=== PATIENT | female | born 1990 | race African-American/Black ===

== ENCOUNTER 2020-12-20 17:26 | Emergency (ER) | payer MEDICAID, SELFPAY ==
[2020-12-20 17:28] VITALS: BP 109/75; PULSE 70; RESP 18; TEMP 36.8; O2SAT 98; BMI 34.9
--- NOTE | 2020-12-20 17:50 | RAD_ITS ---
STUDY: X-RAY - LEFT SHOULDER REASON FOR EXAM: Female, 30 years old. PAIN TECHNIQUE: 4 view(s) of the shoulder. COMPARISON: None. FINDINGS: Normal glenohumeral articulation. Normal acromioclavicular joint. Normal acromion. Normal humeral head and visualized proximal humerus. The soft tissue structures are unremarkable. Normal visualized pulmonary apex. RAD/Shoulder min 2 Views IMPRESSION: Normal x-ray examination of the shoulder. Electronically Signed: Deepti Huizar MD at 18:29 EDT Tel , Service support ,
[2020-12-20 17:54] LABS: Internal QC Validated? YES +Cl - CLEAR BKGD; Pregnancy, Urine Negative Negative
--- NOTE | 2020-12-20 19:01 | EX.ED.UPPERE ---
HPI History of Present Illness Chief Complaint: Upper Extremity Injury Informant: patient Onset/Context/Timing Onset: Month(s) Context: Gradual Onset Timing: Intermittent and Waxes and wanes Quality of Pain: - (Sharp pain) Location: Left shoulder region Current Severity: Mild Maximum Severity: Severe Worsened by: Certain movements Relieved by: Rest with right upper extremity in adduction and internally rotated Associated Symptoms Associated Symptoms: Negative for Parasthesia, Weakness and Loss of Funtion Narrative Narrative: Patient is a 30-year-old [id number] woman who presents with shoulder pain that is been intermittent for the past month. She had increased pain. She states the pain now awakens her when she turns. Tetanus Immunization: 5-10 years Prior similar symptoms: No Recent Illness/Hospitalization: No PFSH PFSH no medical history Home Medications naproxen 500 mg PO BID #14 tab 12/20/20 [Rx Last Taken Unknown] Allergy/AdvReac Type Severity Reaction Status Date / Time Penicillins Allergy Rash Verified 12/20/20 17:27 Social History (Updated 12/20/20 @ 19:[address] Dimas Arreola MD) household members: children Smoking Status: Former smoker alcohol intake: never substance use type: does not use ROS ROS ED Constitutional Constitutional ED: Denies chills, frequent falls, subjective or sweats Cardiovascular Cardiovascular: Denies chest pain or palpitations Respiratory/Chest Respiratory/Chest: Denies cough, dyspnea or dyspnea on exertion Gastrointestinal Gastrointestinal: Denies nausea or vomiting Musculoskeletal Musculoskeletal: Denies back pain, myalgias or neck pain Neurologic Neurologic: Denies paresthesias or weakness Hematologic/Lymphatic Hematologic/Lymphatic: Denies easy bleeding or easy bruising EXAM Physical Exam Const Vital Signs: 12/20/20 17:28 Temperature 98.3 F Temperature Source Temporal Pulse Rate 70 Respiratory Rate 18 Blood Pressure 109/75 Blood Pressure Mean 86 Pulse Ox 98 Oxygen Delivery Method Room Air Positive well nourished and well developed General Appearance ED: well developed and NAD HEENT normocephalic and atraumatic Eyes PERRL and EOMs intact bilaterally Neck full ROM and supple General: Negative for tenderness Resp normal respiratory effort and clear to auscultation bilaterally Cardio regular rate, regular rhythm, S1 normal heart sound, S2 normal heart sound and no murmurs Extremity Left Upper Extremity: shoulder joint Shoulder Joint Exam - Left: inspection (Is normal.), palpation (There is pain no patient over the AC joint and supraspinatus muscle.), ROM (Patient has pain with abduction past 90 degrees.) and neurovascular exam (Axillary, median, radial and ulnar function intact. Radial pulses palpable.) Neuro oriented x3, CN's II-XII intact bilaterally and no sensory deficits noted Sensorium / Orientation: alert Motor Exam: strength 5/5 throughout Psych mental status grossly normal Skin Lesions: no lesions Rashes: no rashes Trauma: no lacerations or abrasions MDM MDM MDM Narrative Medical decision making narrative: Suspect patient has impingement syndrome. Will obtain x-ray to determine if there is evidence of calcification of the supraspinatus tendon. Also if there was evidence of injury to the AC joint since she has significant tenderness over the AC joint. Three-view x-ray of the shoulder reveals widening of the AC joint. This raises suspicion for prior injury. Clinically she has impingement syndrome. Since there is no contraindication NSAID she was prescribed NSAIDs and discharged home. She does not have a physician in the area since she relocated. Will have her follow-up with Dr. Vitaliy Lakhani who is on-call for orthopedics. Lab Data Labs: Laboratory Results - last 24 hr 12/20/20 17:41 Urine Test Negative Radiography Diagnostic Testing: Radiology Impression Shoulder X-Ray 12/20/20 17:50 IMPRESSION: Normal x-ray examination of the shoulder. Electronically Signed: Deepti Huizar MD at 18:29 EDT Tel , Service support , Discharge Plan Triage Chief Complaint: Upper Extremity Injury ED Provider: Dimas Arreola Dx/Rx/DC Orders Clinical Impression: Impingement syndrome of left shoulder Instructions: ED Shoulder Impingement Syndrome Prescriptions: New naproxen 500 MG tablet 500 mg PO BID Qty: 14 RF: 0 Primary Care Provider: Care Physician,No Primary Referrals: Vitaliy Lakhani MD [STAFF PHYSICIAN] - 1 Week if not improving Care Physician,No Primary [Primary Care Provider] - Disposition Disposition: Home, Self Care
[2020-12-20 19:19] VITALS: BP 118/75; PULSE 62; RESP 15; O2SAT 98
== END 2020-12-20 19:19 | disposition home or self-care (01) ==
PROVIDERS: Emergency Provider Emergency Medicine
DX: M75.42 Impingement syndrome of left shoulder (principal); Z87.891 Personal history of nicotine dependence; Z79.1 Long term (current) use of non-steroidal anti-inflammatories (NSAID)
CPT/HCPCS: 73030; 81025; 99284

== ENCOUNTER 2021-01-18 13:32 | Emergency (ER) | payer MEDICAID, SELFPAY ==
[2021-01-18 13:35] VITALS: BP 117/76; PULSE 88; RESP 16; TEMP 36.7; O2SAT 96; BMI 22.4
--- NOTE | 2021-01-18 14:15 | EDS_ITS ---
HPI History of Present Illness Chief Complaint: Abd Pain Narrative Narrative: 30-year-old female with history of ovarian cyst presenting with left lower quadrant abdominal pain/pelvic pain. Patient states that it feels like her previous cyst. She has some associated mild nausea. She is not had fever, chills, vomiting. She denies vaginal complaints or urinary complaints. She has no constipation or diarrhea. Patient is unsure if she can be as her menstrual cycles are regular. Her last menstrual period was December 21. She does not have any breast tenderness or other signs of that she had previous pregnancies. [facility] Medical History Former smoker Ovarian cyst Home Medications ondansetron 4 mg PO Q8H PRN PRN #10 tab 01/18/21 [Rx Last Taken Unknown] Allergy/AdvReac Type Severity Reaction Status Date / Time Penicillins Allergy Rash Verified 01/18/21 13:34 Social History household members: children Smoking Status: Former smoker alcohol intake: never substance use type: does not use ROS ROS ED Constitutional Constitutional ED: Denies chills or fever(s) Eyes Eyes: Denies blurry vision or diplopia ENT ENT ED: Denies rhinorrhea or sore throat Cardiovascular Cardiovascular: Denies chest pain or palpitations Respiratory/Chest Respiratory/Chest: Denies cough, dyspnea or sputum Gastrointestinal Gastrointestinal: Reports abdominal pain and nausea; Denies constipation, diarrhea or vomiting Genitourinary Genitourinary ED: Denies dysuria or hematuria Musculoskeletal Musculoskeletal: Denies arthralgias or myalgias Integumentary Denies Abrasions or rash Neurologic Neurologic: Denies headache(s) or paresthesias EXAM Physical Exam Const Vital Signs: 01/18/21 13:35 Temperature 98.1 F Temperature Source Temporal Pulse Rate 88 Respiratory Rate 16 Blood Pressure 117/76 Blood Pressure Mean 89 Pulse Ox 96 Oxygen Delivery Method Room Air Positive well nourished General Appearance ED: NAD HEENT Reports moist mucous membranes trauma Eyes PERRL and EOMs intact bilaterally Resp normal respiratory effort and clear to auscultation bilaterally Cardio regular rate and regular rhythm GI GI Narrative: Mild tenderness left pelvic region. Abdomen nonperitoneal. No CVA tenderness. Back/Spine no CVA tenderness Extremity normal to inspection General Extremety ED: Yes tenderness Neuro oriented x3 and CN's II-XII intact bilaterally Sensorium / Orientation: alert Psych mental status grossly normal Skin no rashes or lesions noted MDM MDM MDM Narrative Medical decision making narrative: Lab Data Attestation: I reviewed the patient's lab results. Lab results narrative: Patient's urinalysis negative for infection. hCG is negative. Basic lab work drawn and is normal. Transvaginal ultrasound shows a dominant left ovarian follicle without a maritza cyst. Patient counseled on findings. She will use Tylenol and ibuprofen at home. I will write her prescription for Zofran for nausea. Impression: 1. Left ovarian follicle Labs: Laboratory Results - last 24 hr 01/18/21 01/18/21 01/18/21 14:33 14:33 14:33 WBC 3.9 L RBC 4.12 L Hgb 12.3 Hct 38.4 MCV 93.2 MCH 29.9 MCHC 32.0 RDW Std Deviation 41.6 RDW Coeff of Ioana 12.0 Plt Count 272 MPV 9.3 Immature Gran % (Auto) 0.300 Neut % (Auto) 61.4 Lymph % (Auto) 29.0 [place] % (Auto) 8.3 Eos % (Auto) 0.5 Baso % (Auto) 0.5 Absolute Neuts (auto) 2.4 Absolute Lymphs (auto) 1.12 Nucleated RBC % 0 Sodium 139 Potassium 3.6 Chloride 106 Carbon Dioxide 27.0 Anion Gap 6 BUN 11 Creatinine 0.86 Estim Creat Clear Calc 89.54 Est GFR (MDRD) Af Amer 99 Est GFR (MDRD) Non-Af 82 BUN/Creatinine Ratio 12.8 Glucose 98 Calcium 9.1 Urine Color Urine Clarity Urine pH Ur Specific [place] Urine Protein Urine Glucose (UA) Urine Ketones Urine Occult Blood Urine Nitrite Urine Bilirubin Urine Urobilinogen Ur Leukocyte Esterase Urine RBC Urine WBC Ur Squamous Epith Cells Urine Bacteria Urine Mucus Urine Test Negative 01/18/21 14:33 WBC RBC Hgb Hct MCV MCH MCHC RDW Std Deviation RDW Coeff of Ioana Plt Count MPV Immature Gran % (Auto) Neut % (Auto) Lymph % (Auto) [place] % (Auto) Eos % (Auto) Baso % (Auto) Absolute Neuts (auto) Absolute Lymphs (auto) Nucleated RBC % Sodium Potassium Chloride Carbon Dioxide Anion Gap BUN Creatinine Estim Creat Clear Calc Est GFR (MDRD) Af Amer Est GFR (MDRD) Non-Af BUN/Creatinine Ratio Glucose Calcium Urine Color Yellow Urine Clarity Cloudy Urine pH 6.5 Ur Specific [place] 1.015 Urine Protein 30 H Urine Glucose (UA) Normal Urine Ketones 5 H Urine Occult Blood Negative Urine Nitrite Negative Urine Bilirubin Negative Urine Urobilinogen 4 H Ur Leukocyte Esterase 100 H Urine RBC 0 SEEN Urine WBC 0-5 SEEN Ur Squamous Epith Cells 5-10 SEEN Urine Bacteria 1+ Urine Mucus 1+ Urine Test Radiography Diagnostic Testing: Radiology Impression Transvaginal US 01/18/21 15:03 IMPRESSION: Normal transvaginal pelvic ultrasound with a dominant follicle in the left ovary. Electronically Signed: Feliciano Alaniz MD at 16:25 EDT Tel , Service support , Discharge Plan Triage Chief Complaint: Abd Pain ED Provider: Cedrick Harvey Dx/Rx/DC Orders Instructions: Ovarian Cysts Prescriptions: New ondansetron 4 mg tablet,disintegrating 4 mg PO Q8H PRN PRN (Reason: Nausea) Qty: 10 RF: 0 Primary Care Provider: Care Physician,No Primary Referrals: Vipul Pyle MD [STAFF PHYSICIAN] - As Needed Care Physician,No Primary [Primary Care Provider] - Disposition Disposition: Home, Self Care
[2021-01-18] MEDS: Ondansetron 4 MG/2 ML Vial IV (14:37)
[2021-01-18 14:39] LABS: Red Blood Cells-Urine 0 SEEN /hpf (0-5)
[2021-01-18 14:42] LABS: Absolute Lymphocyte Count 1.12 X10^3/uL (0.83-4.51); Absolute Neutrophil Count 2.4 X10^3/uL (2.0-7.7); Basophil# 0.02 X10^3/uL; Basophil% 0.5 % (0-1); Eosinophil# 0.02 X10^3/uL; Eosinophils% 0.5 % (0-5); Hematocrit 38.4 % (37-47); Hemoglobin 12.3 g/dL (12.0-15.0); Lymphocyte # 1.12 X10^3/ul (0.83-4.51); Mean Corpuscular Hgb 29.9 pg (27.0-32.0); Mean Corpuscular Volume 93.2 fL (81-99); Mean Platelet Vol. 9.3 fl (6.2-12.0); Monocyte# 0.32 X10^3/uL; Monocyte% 8.3 % (0-10); NRBC Flagged by Analyzer 0 % (0-5); Neutrophil # 2.37 X10^3/uL (2.7-7.7); Neutrophil % 61.4 % (47-70); Platelet Count 272 K/mm3 (150-450); RBC Distribution Width SD 41.6 fl (35.1-43.9); Red Blood Count 4.12 M/mm3 (4.2-5.4); White Blood Count 3.9 K/mm3 (4.4-11.0)
[2021-01-18 14:45] LABS: Color, Urine Yellow (Yellow); Glucose, Dipstick Normal (Normal); Internal QC Validated? YES +Cl - CLEAR BKGD; Ketone-Dipstick 5 mg/dl (Negative); Leukocyte Esterase-Dipstick 100 /ul (Negative); Nitrite-Dipstick Negative (Negative); Occult Blood-Urine Negative /ul (Negative); Protein-Dipstick 30 mg/dl (Negative); Specific Gravity, Urine 1.015 (1.002-1.030); Urine Bilirubin Dipstick Negative (Negative); Urine Clarity Cloudy (Clear); Urine Urobilinogen 4 mg/dl (Normal); Urine pH 6.5 (5.0 - 8.0)
[2021-01-18 14:48] LABS: Pregnancy, Urine Negative Negative
[2021-01-18 14:54] LABS: Anion Gap 6 (5-15); BUN 11 mg/dL (7-18); BUN/Creat Ratio 12.8 RATIO (10-20); Bacteria 1+ /hpf (None Seen); Calcium,Total 9.1 mg/dL (8.5-10.1); Chloride 106 mmol/L (98-107); Creatinine, Serum 0.86 mg/dL (0.55-1.02); EST Glomerular Filtration Rate 82 mL/min (>60); Est Glom Filt Rate - Afr Amer 99 mL/min (>60); Estimated Creatinine Clearance 89.54 ml/min; Glucose 98 mg/dL (74-106); Potassium 3.6 mmol/L (3.5-5.1); Sodium Level 139 mmol/L (136-145); Squamous Epithelial Cells - UA 5-10 SEEN /hpf (5-10); White Blood Cells 0-5 SEEN /hpf (0-5)
[2021-01-18 14:55] LABS: Mucous, Urine 1+ /hpf (<or=2+)
--- NOTE | 2021-01-18 15:03 | US_ITS ---
STUDY: ULTRASOUND TRANSVAGINAL CLINICAL: Female, 30 years old. pelvic pain-LLQ TECHNIQUE: Transvaginal COMPARISON: None. FINDINGS: Normal uterine size measuring 8.8 x 4.7 x 3.6 cm in maximal craniocaudal dimension. There are no myometrial masses. Normal endometrial thickness measuring 2 mm. There are no endometrial masses, and there is no fluid in the endometrial cavity. Normal uterine cervix. Normal right ovary, measuring 2.4 x 1.7 x 1.2 cm. There are multiple follicles without a dominant cyst. Normal left ovary, measuring 3.7 x 3.2 x 2.7 cm. There are multiple follicles without a dominant cyst. There is no free fluid in the pelvis. Polycystic ovary disease: No. US/Transvaginal Non- IMPRESSION: Normal transvaginal pelvic ultrasound with a dominant follicle in the left ovary. Electronically Signed: Feliciano Alaniz MD at 16:25 EDT Tel , Service support ,
[2021-01-18] MEDS: Ketorolac 15 MG/ML Vial IV (15:38)
[2021-01-18 16:58] VITALS: PULSE 79; RESP 15; O2SAT 99
== END 2021-01-18 16:59 | disposition home or self-care (01) ==
PROVIDERS: Emergency Provider Student in an Organized Health Care Education/Training Program
DX: R10.32 Left lower quadrant pain (principal); R10.2 Pelvic and perineal pain; R11.0 Nausea; Z87.891 Personal history of nicotine dependence
CPT/HCPCS: 76830; 80048; 81001; 81025; 85025; 93976; 96374; 96375; 99283; A4216; J2405

== ENCOUNTER 2021-05-24 13:35 | Outpatient (CLI) | payer MEDICAID, SELFPAY ==
[2021-05-24 14:04] LABS: Hematocrit 37.4 % (37-47); Hemoglobin 12.3 g/dL (12.0-15.0); Mean Corp Hgb Conc 32.9 g/dL (32-36); Mean Corpuscular Hgb 30.1 pg (27.0-32.0); Mean Corpuscular Volume 91.4 fL (81-99); Mean Platelet Vol. 9.3 fl (6.2-12.0); Platelet Count 299 K/mm3 (150-450); RBC Distribution Width CV 12.1 % (11.6-14.6); RBC Distribution Width SD 40.6 fl (35.1-43.9); Red Blood Count 4.09 M/mm3 (4.2-5.4); White Blood Count 3.3 K/mm3 (4.4-11.0)
[2021-05-24 14:32] LABS: hCG Titer Quant., Serum < 1 mIU/mL (1-3)
[2021-05-24 14:54] LABS: Estradiol 129.9 pg/mL; Follicle Stimulating Hormone 6.9 mIU/mL; Luteinizing Hormone 13.7 mIU/mL; Prolactin 37.8 ng/mL; T4 Free Direct 0.82 ng/dL (0.76-1.46); Thyroid Stim Hormone (TSH) 0.44 uIU/mL (0.358-3.74)
== END 2021-05-24 23:59 | disposition short-term general hospital (02) ==
LOC: WOBLAB 13:36
PROVIDERS: Visit Provider Obstetrics & Gynecology
DX: N93.9 Abnormal uterine and vaginal bleeding, unspecified (principal)
CPT/HCPCS: 36415; 82670; 83001; 83002; 84146; 84439; 84443; 84702; 85027; 86900; 86901

== ENCOUNTER 2021-07-13 21:02 | Emergency (ER) | payer MEDICAID, SELFPAY ==
[2021-07-13 21:03] VITALS: BP 102/56; PULSE 90; RESP 16; TEMP 36.3; O2SAT 98; BMI 20.9
[2021-07-14 00:41] LABS: Red Blood Cells-Urine 0 SEEN /hpf (0-5)
[2021-07-14 00:43] LABS: Absolute Lymphocyte Count 2.55 X10^3/uL (0.83-4.51); Absolute Neutrophil Count 1.7 X10^3/uL (2.0-7.7); Basophil# 0.03 X10^3/uL; Basophil% 0.6 % (0-1); Eosinophil# 0.07 X10^3/uL; Eosinophils% 1.5 % (0-5); Hematocrit 35.3 % (37-47); Hemoglobin 11.8 g/dL (12.0-15.0); Lymphocyte # 2.55 X10^3/ul (0.83-4.51); Lymphocyte % 54.8 % (19-41); Mean Corp Hgb Conc 33.4 g/dL (32-36); Mean Corpuscular Hgb 30.4 pg (27.0-32.0); Mean Platelet Vol. 9.3 fl (6.2-12.0); Monocyte# 0.33 X10^3/uL; Monocyte% 7.1 % (0-10); NRBC Flagged by Analyzer 0 % (0-5); Neutrophil # 1.66 X10^3/uL (2.7-7.7); Neutrophil % 35.8 % (47-70); Platelet Count 251 K/mm3 (150-450); RBC Distribution Width CV 12.3 % (11.6-14.6); RBC Distribution Width SD 40.7 fl (35.1-43.9); Red Blood Count 3.88 M/mm3 (4.2-5.4); White Blood Count 4.7 K/mm3 (4.4-11.0)
[2021-07-14 00:48] LABS: Color, Urine Yellow (Yellow); Glucose, Dipstick Normal (Normal); Ketone-Dipstick Negative (Negative); Leukocyte Esterase-Dipstick 25 /ul (Negative); Nitrite-Dipstick Negative (Negative); Occult Blood-Urine Negative /ul (Negative); Protein-Dipstick Negative (Negative); Urine Bilirubin Dipstick Negative (Negative); Urine Clarity Clear (Clear); Urine Urobilinogen 1 mg/dl (Normal)
[2021-07-14 00:51] LABS: Internal QC Validated? YES +Cl - CLEAR BKGD
[2021-07-14 00:52] LABS: Pregnancy, Urine Positive Negative
[2021-07-14 00:57] LABS: Bacteria 2+ /hpf (None Seen); Mucous, Urine 3+ /hpf (<or=2+); Squamous Epithelial Cells - UA 5-10 SEEN /hpf (5-10); White Blood Cells 0-5 SEEN /hpf (0-5)
[2021-07-14 01:15] LABS: AST(SGOT) 13 U/L (15-37); Alanine Aminotransfer ALT/SGPT 20 U/L (13-56); Albumin, Serum 3.5 g/dL (3.2-5.0); Alkaline Phosphatase 48 U/L (45-117); Anion Gap 6 (5-15); BUN 10 mg/dL (7-18); BUN/Creat Ratio 13.1 RATIO (10-20); Bilirubin, Direct 0.19 mg/dL (0.00-0.30); Calcium,Total 9.1 mg/dL (8.5-10.1); Chloride 106 mmol/L (98-107); Creatinine, Serum 0.76 mg/dL (0.55-1.02); EST Glomerular Filtration Rate 94 mL/min (>60); Est Glom Filt Rate - Afr Amer 113 mL/min (>60); Estimated Creatinine Clearance 99.73 ml/min; Globulin 3.7 g/dL (2.2-4.2); Glucose 88 mg/dL (74-106); Lipase 194 U/L (73-393); Potassium 3.5 mmol/L (3.5-5.1); Protein, Total 7.2 g/dL (6.4-8.2); Sodium Level 140 mmol/L (136-145)
--- NOTE | 2021-07-14 01:28 | US_ITS ---
STUDY: FIRST TRIMESTER OBSTETRICAL ULTRASOUND REASON FOR EXAM: Female, 31 years old pelvic pain LMP: 06/16/2021 TECHNIQUE: Transvaginal TECHNICAL QUALITY: Adequate. PRIOR ULTRASOUND: None. FINDINGS: There is no demonstrated intrauterine gestational sac. The uterus measures 9.3 x 5.4 x 4.9 cm. There is no demonstrated uterine fibroid. The cervix is closed. The right ovary measures 3 x 4.9 x 3 cm. There is no right ovarian cyst. There is no visualized right adnexal mass or complex lesion. The left ovary measures 3.4 x 3003 cm. There is no left ovarian cyst. There is no visualized left adnexal mass or complex lesion. There is minimal fluid in the cul de sac. US/Transvaginal w/Preg US IMPRESSION: There is minimal fluid in the cul de sac. There is no demonstrated intrauterine gestational sac. Ectopic cannot be excluded. Follow-up is recommended. Electronically Signed: Slim Gama MD at 3:05 EDT ,
[2021-07-14] MEDS: Acetaminophen 500 MG Tablet 1000 MG PO (01:37)
[2021-07-14 01:39] VITALS: BP 102/48; PULSE 77; RESP 16; O2SAT 100
[2021-07-14 01:59] LABS: hCG Titer Quant., Serum 19 mIU/mL (1-3)
--- NOTE | 2021-07-14 04:13 | EDS_ITS ---
HPI History of Present Illness Chief Complaint: Abd Pain Narrative Narrative: Patient is a 31-year-old female who states that she has noticed some right-sided lower abdominal pain throughout the day today. She states is gradually increased in severity and now radiates towards her back. She denies any trauma or excessive activity. She reports nausea but denies any vomiting or diarrhea. She denies any vaginal bleeding or discharge. She states she has had an ovarian cyst in the past and has concern for this once again and therefore comes in for evaluation. [facility] Medical History Former smoker Ovarian cyst Home Medications ondansetron 4 mg PO Q8H PRN PRN #10 tab 01/18/21 [Rx Last Taken Unknown] Allergy/AdvReac Type Severity Reaction Status Date / Time Penicillins Allergy Rash Verified 07/13/21 21:05 Social History household members: children Smoking Status: Former smoker alcohol intake: never substance use type: does not use ROS ROS ED Constitutional Constitutional ED: Denies chills or fever(s) ENT ENT ED: Denies sore throat Cardiovascular Cardiovascular: Denies chest pain Respiratory/Chest Respiratory/Chest: Denies cough or dyspnea Gastrointestinal Gastrointestinal: Reports abdominal pain and nausea; Denies diarrhea or vomiting Genitourinary Genitourinary ED: Denies dysuria or hematuria Musculoskeletal Musculoskeletal: Reports back pain; Denies myalgias Integumentary Denies rash Neurologic Neurologic: Denies headache(s) Hematologic/Lymphatic Hematologic/Lymphatic: Denies easy bleeding or easy bruising EXAM Physical Exam Const Vital Signs: 07/13/21 21:03 07/14/21 01:39 07/14/21 04:15 Temperature 97.4 F L Temperature Source Temporal Pulse Rate 90 77 80 Respiratory Rate 16 16 18 Blood Pressure 102/56 L 102/48 L Blood Pressure Mean 71 66 Pulse Ox 98 100 97 Oxygen Delivery Method Room Air Room Air Positive well nourished and well developed General Appearance ED: well developed HEENT Reports moist mucous membranes Eyes PERRL and EOMs intact bilaterally Neck supple Resp normal respiratory effort and clear to auscultation bilaterally Cardio regular rate and regular rhythm Rate: other Other Details: Radial pulses are +2-4 bilaterally are equal and symmetric GI non-distended and no masses GI Narrative: Abdomen is soft and nondistended with normoactive bowel sounds. There is faint pain with palpation in the right lower quadrant without voluntary guarding or rigidity. No pulsatile mass Auscultation: normoactive bowel sounds Palpation: soft Back/Spine no CVA tenderness Extremity normal to inspection Neuro oriented x3 and CN's II-XII intact bilaterally Sensorium / Orientation: alert Motor Exam: strength 5/5 throughout Psych mental status grossly normal Skin no rashes or lesions noted MDM MDM MDM Narrative Medical decision making narrative: Patient presented to the ER with stable vitals and a soft nonsurgical abdomen. She had pain in the right lower quadrant but no physical exam findings to concern for appendicitis. She had concern for an ovarian cyst but he does not present as a torsion and therefore do not feel there is a need to call an ultrasound emergently. A basic work-up was obtained which shows that she does test positive for urine . With her abdominal pain I therefore elected to call an ultrasound because of the chance of an ectopic. The patient's hCG value was only 19 and ultrasound did not show anything within the uterus which is consistent with her early gestational age. I reevaluated the patient and she reports moderate improvement of her abdominal pain. I discussed the case with [facility] on-call and they agree that as vitals are stable abdomen is soft and nonsurgical and that her value is so low this correlates with nothing seen on ultrasound and patient can follow-up on an outpatient basis with serial hCG value. This plan was discussed with the patient she is agreeable to it and therefore be discharged at this time Lab Data Attestation: I reviewed the patient's lab results. Labs: Laboratory Results - last 24 hr 07/14/21 07/14/21 07/14/21 00:20 00:30 00:30 WBC 4.7 RBC 3.88 L Hgb 11.8 L Hct 35.3 L MCV 91.0 MCH 30.4 MCHC 33.4 RDW Std Deviation 40.7 RDW Coeff of Ioana 12.3 Plt Count 251 MPV 9.3 Immature Gran % (Auto) 0.200 Neut % (Auto) 35.8 L Lymph % (Auto) 54.[address] [place] % (Auto) 7.1 Eos % (Auto) 1.5 Baso % (Auto) 0.6 Absolute Neuts (auto) 1.7 L Absolute Lymphs (auto) 2.55 Nucleated RBC % 0 Sodium 140 Potassium 3.5 Chloride 106 Carbon Dioxide 28.0 Anion Gap 6 BUN 10 Creatinine 0.76 Estim Creat Clear Calc 99.73 Est GFR (MDRD) Af Amer 113 Est GFR (MDRD) Non-Af 94 BUN/Creatinine Ratio 13.1 Glucose 88 Calcium 9.1 Total Bilirubin 0.70 Direct Bilirubin 0.19 AST 13 L ALT 20 Alkaline Phosphatase 48 Total Protein 7.2 Albumin 3.5 Globulin 3.7 Lipase 194 HCG, Quant Urine Color Yellow Urine Clarity Clear Urine pH 6.0 Ur Specific [place] 1.020 Urine Protein Negative Urine Glucose (UA) Normal Urine Ketones Negative Urine Occult Blood Negative Urine Nitrite Negative Urine Bilirubin Negative Urine Urobilinogen 1 H Ur Leukocyte Esterase 25 H Urine RBC 0 SEEN Urine WBC 0-5 SEEN Ur Squamous Epith Cells 5-10 SEEN Urine Bacteria 2+ Urine Mucus 3+ Urine Test Positive H Blood Type 07/14/21 07/14/21 01:20 01:20 WBC RBC Hgb Hct MCV MCH MCHC RDW Std Deviation RDW Coeff of Ioana Plt Count MPV Immature Gran % (Auto) Neut % (Auto) Lymph % (Auto) [place] % (Auto) Eos % (Auto) Baso % (Auto) Absolute Neuts (auto) Absolute Lymphs (auto) Nucleated RBC % Sodium Potassium Chloride Carbon Dioxide Anion Gap BUN Creatinine Estim Creat Clear Calc Est GFR (MDRD) Af Amer Est GFR (MDRD) Non-Af BUN/Creatinine Ratio Glucose Calcium Total Bilirubin Direct Bilirubin AST ALT Alkaline Phosphatase Total Protein Albumin Globulin Lipase HCG, Quant 19 H Urine Color Urine Clarity Urine pH Ur Specific [place] Urine Protein Urine Glucose (UA) Urine Ketones Urine Occult Blood Urine Nitrite Urine Bilirubin Urine Urobilinogen Ur Leukocyte Esterase Urine RBC Urine WBC Ur Squamous Epith Cells Urine Bacteria Urine Mucus Urine Test Blood Type O POSITIVE Radiography Diagnostic Testing: Clinical Impression(s) from Imaging Studies Obstetrics Ultrasound 07/14/21 01:28 IMPRESSION: There is minimal fluid in the cul de sac. There is no demonstrated intrauterine gestational sac. Ectopic cannot be excluded. Follow-up is recommended. Electronically Signed: Slim Gama MD at 3:05 EDT , Discharge Plan Triage Chief Complaint: Abd Pain ED Provider: Thuan Mcdonald Dx/Rx/DC Orders Clinical Impression: Abdominal pain during Instructions: ED Abdominal Pain, Early Prescriptions: No Action ondansetron 4 mg tablet,disintegrating 4 mg PO Q8H PRN PRN (Reason: Nausea) Qty: 10 RF: 0 Primary Care Provider: Care Physician,No Primary Referrals: Sergio Lakhani MD [STAFF PHYSICIAN] - 5-7 Days Care Physician,No Primary [Primary Care Provider] - Activity Restrictions/Additional Instructions: Please follow-up with your [facility] to have repeat values obtained and return to the ER should you have any further concerns Disposition Disposition: Home, Self Care Discharge Date/Time: 07/14/21 04:29
[2021-07-14 04:15] VITALS: PULSE 80; RESP 18; O2SAT 97
== END 2021-07-14 04:29 | disposition home or self-care (01) ==
PROVIDERS: Emergency Provider Emergency Medicine; Visit Provider Emergency Medicine
DX: O26.899 Other specified pregnancy related conditions, unspecified trimester (principal); R10.31 Right lower quadrant pain; Z3A.00 Weeks of gestation of pregnancy not specified; Z87.891 Personal history of nicotine dependence
CPT/HCPCS: 76817; 80048; 80076; 81001; 81025; 83690; 84702; 85025; 86900; 86901; 99284; A4216

== ENCOUNTER 2021-07-17 10:36 | Emergency (ER) | payer MEDICAID, SELFPAY ==
[2021-07-17 10:37] VITALS: PULSE 80; RESP 14; TEMP 36.5; O2SAT 100; BMI 20.9
--- NOTE | 2021-07-17 11:01 | EDS_ITS ---
HPI HPI - Female History of Present Illness Chief Complaint: Vag Bld, Preg Informant: patient Bleeding Issue: Positive for Vaginal bleeding Onset: Yesterday Context: Gradual Onset Timing: Continuous Current Severity: Similar to period Maximum Severity: Similar to period Associated Symptoms Associated Symptoms: Negative for Dysuria and Frequency Last known menstrual period: 06/16/2021 P: 5 Ab: 7 Narrative Narrative: Patient presents with vaginal bleeding that began today. Patient states she is approximately 4 weeks . Patient states that she started having some spotting last night. Patient states that today her bleeding is more like the beginning of her normal menstrual cycle for her. Patient states her last normal menstrual period was 06/16/2021. Patient denies any cramping or abdominal pain. Patient denies any back pain. Patient here 3 days ago and had a quantitative hCG of 19. Pelvic ultrasound at that time did not show any . There were no adnexal masses noted. [facility] Medical History Former smoker Ovarian cyst Allergy/AdvReac Type Severity Reaction Status Date / Time Penicillins Allergy Rash Verified 07/17/21 10:38 Social History household members: children Smoking Status: Former smoker alcohol intake: never substance use type: does not use ROS ROS ED Constitutional Constitutional ED: Denies chills or fever(s) Eyes Eyes: Denies blurry vision or change in vision ENT ENT ED: Denies rhinorrhea or sore throat Cardiovascular Cardiovascular: Denies chest pain or palpitations Respiratory/Chest Respiratory/Chest: Denies cough or dyspnea Gastrointestinal Gastrointestinal: Denies nausea or vomiting Genitourinary Genitourinary ED: Denies dysuria or hematuria Musculoskeletal Musculoskeletal: Denies back pain or neck pain Integumentary Denies abscess or rash Neurologic Neurologic: Denies headache(s) or weakness Allergic/Immunologic Allergic/Immunologic ED: Denies mouth swelling or urticaria EXAM Physical Exam Const Vital Signs: 07/17/21 10:37 07/17/21 12:37 Temperature 97.7 F L Temperature Source Temporal Pulse Rate 80 Respiratory Rate 14 16 Pulse Ox 100 Oxygen Delivery Method Room Air Positive well nourished and well developed General Appearance ED: well developed HEENT Reports moist mucous membranes Neck supple and no JVD Resp normal respiratory effort and clear to auscultation bilaterally Cardio regular rate, regular rhythm and no murmurs GI normal to inspection, nondistended, normoactive bowel sounds and non-tender Palpation: soft Extremity normal to inspection General Extremety ED: Negative for edema or tenderness General Extremity: Negative for edema Neuro oriented x3, CN's II-XII intact bilaterally and no sensory deficits noted Sensorium / Orientation: alert Motor Exam: strength 5/5 throughout Psych mental status grossly normal Skin no rashes or lesions noted MDM MDM MDM Narrative Medical decision making narrative: Patient was given IV fluids. CBC was within normal limits. Quantitative hCG was 3. This was decreased from previous result 3 days ago. Urinalysis shows occult blood of 250 with 10-25 red blood cells. There are 5-10 squamous epithelial cells. There is no evidence of any urinary tract infection. Patient was advised of her findings. Patient was advised ultrasound would not be beneficial at this time since she just had one 3 days ago and her quantitative hCG is actually less than it was before. 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 Patient understood and was agreeable with the plan. All questions were answered. Lab Data Attestation: I reviewed the patient's lab results. Labs: Laboratory Results - last 24 hr 07/17/21 07/17/21 07/17/21 11:35 11:35 12:40 WBC 2.7 L RBC 3.93 L Hgb 11.9 L Hct 36.1 L MCV 91.9 MCH 30.3 MCHC 33.0 RDW Std Deviation 41.0 RDW Coeff of Ioana 12.2 Plt Count 241 MPV 9.0 Immature Gran % (Auto) 0.000 Neut % (Auto) 44.0 L Lymph % (Auto) 47.2 H [place] % (Auto) 5.9 Eos % (Auto) 2.2 Baso % (Auto) 0.7 Absolute Neuts (auto) 1.2 L Absolute Lymphs (auto) 1.28 Nucleated RBC % 0 HCG, Quant 3 Urine Color Yellow Urine Clarity Sl. Cloudy Urine pH 7.0 Ur Specific [place] 1.010 Urine Protein 15 H Urine Glucose (UA) Normal Urine Ketones Negative Urine Occult Blood 250 H Urine Nitrite Negative Urine Bilirubin Negative Urine Urobilinogen Normal Ur Leukocyte Esterase Negative Urine RBC 10-25 SEEN Urine WBC 0-5 SEEN Ur Squamous Epith Cells 5-10 SEEN Urine Bacteria RARE Urine Mucus 0 SEEN Discharge Plan Triage Chief Complaint: Vag Bld, Preg ED Provider: Deniz Squires Dx/Rx/DC Orders Clinical Impression: Spontaneous miscarriage Instructions: ED MISCARRIAGE Completed Primary Care Provider: Care Physician,No Primary Referrals: Sergio Lakhani MD [STAFF PHYSICIAN] - Care Physician,No Primary [Primary Care Provider] - Disposition Disposition: Home, Self Care
[2021-07-17] MEDS: 0.9% Normal Saline 1,000 ML 1000 ML IV (11:35)
[2021-07-17 11:42] LABS: Absolute Lymphocyte Count 1.28 X10^3/uL (0.83-4.51); Absolute Neutrophil Count 1.2 X10^3/uL (2.0-7.7); Basophil# 0.02 X10^3/uL; Basophil% 0.7 % (0-1); Eosinophil# 0.06 X10^3/uL; Eosinophils% 2.2 % (0-5); Hematocrit 36.1 % (37-47); Hemoglobin 11.9 g/dL (12.0-15.0); Lymphocyte # 1.28 X10^3/ul (0.83-4.51); Lymphocyte % 47.2 % (19-41); Mean Corpuscular Hgb 30.3 pg (27.0-32.0); Mean Corpuscular Volume 91.9 fL (81-99); Monocyte# 0.16 X10^3/uL; Monocyte% 5.9 % (0-10); NRBC Flagged by Analyzer 0 % (0-5); Neutrophil # 1.19 X10^3/uL (2.7-7.7); Platelet Count 241 K/mm3 (150-450); RBC Distribution Width CV 12.2 % (11.6-14.6); Red Blood Count 3.93 M/mm3 (4.2-5.4); White Blood Count 2.7 K/mm3 (4.4-11.0)
[2021-07-17 12:00] LABS: hCG Titer Quant., Serum 3 mIU/mL (1-3)
[2021-07-17 12:37] VITALS: RESP 16
[2021-07-17 12:58] LABS: Mucous, Urine 0 SEEN /hpf (<or=2+)
[2021-07-17 13:00] LABS: Color, Urine Yellow (Yellow); Glucose, Dipstick Normal (Normal); Ketone-Dipstick Negative (Negative); Leukocyte Esterase-Dipstick Negative /ul (Negative); Nitrite-Dipstick Negative (Negative); Occult Blood-Urine 250 /ul (Negative); Protein-Dipstick 15 mg/dl (Negative); Urine Bilirubin Dipstick Negative (Negative); Urine Clarity Sl. Cloudy (Clear); Urine Urobilinogen Normal (Normal)
[2021-07-17 13:08] LABS: Red Blood Cells-Urine 10-25 SEEN /hpf (0-5); Squamous Epithelial Cells - UA 5-10 SEEN /hpf (5-10); White Blood Cells 0-5 SEEN /hpf (0-5)
[2021-07-17 13:09] LABS: Bacteria RARE /hpf (None Seen)
[2021-07-17 14:07] VITALS: BP 104/88; PULSE 66
== END 2021-07-17 14:21 | disposition home or self-care (01) ==
PROVIDERS: Emergency Provider Emergency Medicine; Visit Provider Emergency Medicine
DX: O03.9 Complete or unspecified spontaneous abortion without complication (principal); Z87.891 Personal history of nicotine dependence
CPT/HCPCS: 81001; 84702; 85025; 99282

== ENCOUNTER 2022-03-23 20:29 | Emergency (ER) | payer MEDICAID, SELFPAY ==
--- NOTE | 2022-03-23 22:18 | ED.RN ---
patient was sent up form OB for eval, during triage was complaining of contractions and pelvic pressure. case discussed with OB and patient returned to OB at this time
[2022-03-23 22:21] VITALS: BP 109/67; PULSE 106; RESP 18; TEMP 37.2; O2SAT 100; BMI 27.4
--- NOTE | 2022-03-23 22:58 | EKG12_ITS ---
Test Reason : CP Blood Pressure : / mmHG Vent. Rate : 104 BPM Atrial Rate : 104 BPM P-R Int : 154 ms QRS Dur : 078 ms QT Int : 338 ms P-R-T Axes : 063 015 022 degrees QTc Int : 444 ms Sinus tachycardia Otherwise normal ECG Confirmed by LUCIAN BRITO, MILANA ([id number]), features editor MELISSA BRONSON ([id number]) on 03/27/2022 11:54:35 AM Referred By: MARISOL Confirmed By:MILANA EPSTEIN MD
[2022-03-23 23:16] LABS: Absolute Lymphocyte Count 1.23 X10^3/uL (0.83-4.51); Absolute Neutrophil Count 8.2 X10^3/uL (2.0-7.7); Basophil# 0.01 X10^3/uL; Basophil% 0.1 % (0-1); Eosinophil# 0.15 X10^3/uL; Eosinophils% 1.5 % (0-5); Hematocrit 28.9 % (37-47); Hemoglobin 9.1 g/dL (12.0-15.0); Lymphocyte # 1.23 X10^3/ul (0.83-4.51); Lymphocyte % 11.9 % (19-41); Mean Corp Hgb Conc 31.5 g/dL (32-36); Mean Corpuscular Hgb 28.3 pg (27.0-32.0); Mean Platelet Vol. 9.9 fl (6.2-12.0); Monocyte# 0.64 X10^3/uL; Monocyte% 6.2 % (0-10); NRBC Flagged by Analyzer 0 % (0-5); Neutrophil # 8.24 X10^3/uL (2.7-7.7); Neutrophil % 79.6 % (47-70); Platelet Count 213 K/mm3 (150-450); RBC Distribution Width CV 13.9 % (11.6-14.6); RBC Distribution Width SD 44.6 fl (35.1-43.9); Red Blood Count 3.21 M/mm3 (4.2-5.4); White Blood Count 10.3 K/mm3 (4.4-11.0)
[2022-03-23 23:36] LABS: Anion Gap 9 (5-15); BUN 6 mg/dL (7-18); BUN/Creat Ratio 9.9 RATIO (10-20); Chloride 106 mmol/L (98-107); Creatinine, Serum 0.61 mg/dL (0.55-1.02); EST Glomerular Filtration Rate 121 mL/min (>60); Est Glom Filt Rate - Afr Amer 146 mL/min (>60); Estimated Creatinine Clearance 123.95 ml/min; Glucose 96 mg/dL (74-106); Magnesium 1.8 mg/dL (1.6-2.6); Potassium 3.4 mmol/L (3.5-5.1); Sodium Level 138 mmol/L (136-145); Troponin-I HS 4 pg/mL (3.0-54.0)
--- NOTE | 2022-03-23 23:56 | EDS_ITS ---
HPI History of Present Illness Chief Complaint: Chest Pain Narrative Narrative: Patient is a G 14 P6 female approximately 36 weeks . She is visiting from [place] for the holiday. She states that she was with family today when she noticed some upper abdomen/lower chest pain and secondary to his came to the ER for evaluation. Based on her gravid state she was sent up to the OB unit where they evaluated her for possible premature /contractions. They ruled this out and patient was still having some upper abdominal/lower chest pain so she was sent to the ER for repeat evaluation. The patient denies any family history of cardiac disease at a young age. She denies any smoking. She denies any recent travel surgery or history of DVT/PE. However she feels like the chest pain is different than the contractions he was having with this presents for evaluation [facility] Medical History Former smoker Ovarian cyst Home Medications ferrous sulfate 325 mg (65 mg iron) tablet 325 mg PO DAILY SEE PROVIDER 03/23/22 [History Last Taken Unknown] Allergy/AdvReac Type Severity Reaction Status Date / Time Penicillins Allergy Rash Verified 03/23/22 22:26 Social History household members: children Smoking Status: Former smoker alcohol intake: never substance use type: does not use ROS ROS ED Constitutional Constitutional ED: Denies chills or fever(s) ENT ENT ED: Denies sore throat Cardiovascular Cardiovascular: Reports chest pain; Denies palpitations Respiratory/Chest Respiratory/Chest: Denies cough or dyspnea Gastrointestinal Gastrointestinal: Reports abdominal pain; Denies diarrhea, nausea or vomiting Genitourinary Genitourinary ED: Denies dysuria Musculoskeletal Musculoskeletal: Denies myalgias Integumentary Denies rash Neurologic Neurologic: Denies headache(s) Hematologic/Lymphatic Hematologic/Lymphatic: Denies easy bleeding or easy bruising EXAM Physical Exam Const Vital Signs: 03/23/22 22:21 03/23/22 22:30 03/24/22 00:00 Temperature 99.0 F Temperature Source Temporal Pulse Rate 106 H 104 H Respiratory Rate 18 16 Respiratory Effort Short of Breath Blood Pressure 109/67 102/60 Blood Pressure Mean 81 74 Pulse Ox 100 100 Oxygen Delivery Method Room Air Room Air Positive well nourished and well developed General Appearance ED: well developed HEENT Reports moist mucous membranes Eyes PERRL and EOMs intact bilaterally Neck supple Resp normal respiratory effort and clear to auscultation bilaterally Cardio regular rhythm Rate: tachycardic and other Other Details: Slightly tachycardic rate of approximately 110 with regular rhythm Radial pulses are +2-4 bilaterally are equal and symmetric Carotid pulses equal and symmetric as well GI GI Narrative: Abdomen is gravid with fundus consistent with reported gestational age. There is pain with palpation of the mid to right upper abdomen/lower chest wall without voluntary guarding or rigidity. No defect to suggest placental abruption. Auscultation: normoactive bowel sounds Extremity normal to inspection Extremity Narrative: Trace pitting edema noted bilaterally negative Homans' sign Neuro oriented x3 and CN's II-XII intact bilaterally Sensorium / Orientation: alert Psych mental status grossly normal Skin no rashes or lesions noted MDM MDM MDM Narrative Medical decision making narrative: Patient initially went from the emergency department to OB secondary to her 36- week gravid status and complaint of abdominal pain. They ruled out as a cause of her symptoms but the upper abdominal/lower chest pain was persisting. Upon arrival vitals were stable but patient was tachycardic and had slight tachypnea. Secondary to this I could not rule her out through the PERC criteria. Troponin was normal at 4 and she is low risk for cardiac disease. However her D-dimer was over 3 times the upper limit of normal which still could be related to but with her tachycardia and tachypnea a pulmonary embolus needs to be ruled out. Secondary to that she underwent a CTA which revealed no obvious pulmonary embolus or aortic dissection. A question developing edema versus infection in the bilateral lower lobes. The patient does not have a fever or white count and she is not coughing and therefore I favor edema based on her status and do not believe there is need for antibiotics. At this time as the work-up shows no signs of heart damage and no obvious pulmonary embolus she is otherwise safe for discharge and can follow-up with her GAS TECHNICIAN for repeat evaluation Lab Data Attestation: I reviewed the patient's lab results. Labs: Laboratory Results - last 24 hr 03/23/22 03/23/22 03/23/22 23:05 23:05 23:05 WBC 10.3 RBC 3.21 L Hgb 9.1 L Hct 28.9 L MCV 90.0 MCH 28.3 MCHC 31.5 L RDW Std Deviation 44.6 H RDW Coeff of Ioana 13.9 Plt Count 213 MPV 9.9 Immature Gran % (Auto) 0.700 Neut % (Auto) 79.6 H Lymph % (Auto) 11.9 L [place] % (Auto) 6.2 Eos % (Auto) 1.5 Baso % (Auto) 0.1 Absolute Neuts (auto) 8.2 H Absolute Lymphs (auto) 1.23 Nucleated RBC % 0 PT INR APTT D-Dimer Quant (PE/DVT) 1.68 H* Sodium 138 Potassium 3.4 L Chloride 106 Carbon Dioxide 23.0 Anion Gap 9 BUN 6 L Creatinine 0.61 Estim Creat Clear Calc 123.95 Est GFR (MDRD) Af Amer 146 Est GFR (MDRD) Non-Af 121 BUN/Creatinine Ratio 9.9 L Glucose 96 Calcium 9.0 Magnesium 1.8 Troponin I High Sens 4 03/23/22 23:05 WBC RBC Hgb Hct MCV MCH MCHC RDW Std Deviation RDW Coeff of Ioana Plt Count MPV Immature Gran % (Auto) Neut % (Auto) Lymph % (Auto) [place] % (Auto) Eos % (Auto) Baso % (Auto) Absolute Neuts (auto) Absolute Lymphs (auto) Nucleated RBC % PT 13.1 INR 1.0 APTT 26.7 D-Dimer Quant (PE/DVT) Sodium Potassium Chloride Carbon Dioxide Anion Gap BUN Creatinine Estim Creat Clear Calc Est GFR (MDRD) Af Amer Est GFR (MDRD) Non-Af BUN/Creatinine Ratio Glucose Calcium Magnesium Troponin I High Sens Radiography Diagnostic Testing: Clinical Impression(s) from Imaging Studies Chest CTA 03/24/22 00:08 IMPRESSION: 1. No pulmonary embolism to the subsegmental level. 2. Bilateral central groundglass opacities, suggestive of developing edema or infection. 3. Left thyroid nodule measuring 14 mm. 4. Right middle lobe 4 mm pulmonary nodule. *Fleischner Society Recommendations (Radiology 2005;237:395-400.) (Follow-up and management of nodules smaller than 8 mm detected incidentally at non-screening CT. Newly detected indeterminate nodule in persons 35 years of age or older.) Low risk patient: Minimal or absent history of smoking and of other known risk factors. <= 4mm: No followup needed >4-6mm: Follow-up CT at 12 months, if unchanged - no further followup >6-8mm: Initial Follow-up CT at 6-12 months, then at 18-24 months if no change >8mm: Follow-up CT at 3, 9, and 24 months; FDG PET scan; and or biopsy High risk patient: History of smoking or of other known risk factors. <= 4mm: Follow-up CT at 12 months, if unchanged - no further followup >4-6mm: Initial Follow-up CT at 6-12 months, then at 18-24 months if no change >6-8mm: Initial Follow-up CT at 3-6 months, then at 9-12 and 24 months if no change >8mm: Follow-up CT at 3, 9, and 24 months; FDG PET scan; and or biopsy Note: Non-solid (ground-glass) or partly solid nodules may require longer follow-up to Electronically Signed: Carlos Ralph MD at 1:08 EST , Discharge Plan Triage Chief Complaint: Chest Pain Other Complaint: Shortness of Breath ED Provider: Thuan Mcdonald Dx/Rx/DC Orders Clinical Impression: Acute nonspecific chest pain with low risk of coronary artery disease, Abdominal pain in Instructions: ED Chest Pain, Uncertain Cause Prescriptions: No Action ferrous sulfate 325 mg (65 mg iron) Tablet 325 mg PO DAILY Primary Care Provider: Care Physician,No Primary Referrals: Care Physician,No Primary [Primary Care Provider] - Activity Restrictions/Additional Instructions: Please follow-up with your GAS TECHNICIAN for repeat evaluation. However your work-up today in the ER does not show signs of heart damage obvious lung infection or blood clot. Please return to the hospital should you have worsening symptoms or any further concerns Disposition Disposition: Home, Self Care
[2022-03-24] VITALS: BP 102/60; PULSE 104; RESP 16; O2SAT 100
[2022-03-24] LABS: D-Dimer Quantitative (DVT/PE) 1.68 FEU/ug/m (0.27-0.49)
--- NOTE | 2022-03-24 00:08 | CT_ITS ---
STUDY: CTA CHEST REASON FOR EXAM: Female, 32 years old. chest pain with elevated d-dimer RADIATION DOSAGE (If Supplied By Facility): CTDIvol = ( 13.70 ) mGy, DLP = ( 355.73 ) mGycm TECHNIQUE: The examination was performed with the intravenous administration of IV 100mL Isovue-370. Post-processing of the angiographic images was performed, with multiplanar reformation and 3D reconstruction. Individualized dose optimization techniques were used for this CT. COMPARISON: None. FINDINGS: LUNGS: Right middle lobe 4 mm pulmonary nodule. Central bilateral groundglass opacities. AORTA/GREAT VESSELS: No aneurysm.. PULMONARY VESSELS: Normal. PLEURA: Normal. MEDIASTINUM: 14 mm left thyroid nodule. UPPER ABDOMEN: Normal. BONES/SOFT TISSUES: Normal. OTHER: None. CT/CTA Chest W/WO Contrast IMPRESSION: 1. No pulmonary embolism to the subsegmental level. 2. Bilateral central groundglass opacities, suggestive of developing edema or infection. 3. Left thyroid nodule measuring 14 mm. 4. Right middle lobe 4 mm pulmonary nodule. *Fleischner Society Recommendations (Radiology 2005;237:395-400.) (Follow-up and management of nodules smaller than 8 mm detected incidentally at non-screening CT. Newly detected indeterminate nodule in persons 35 years of age or older.) Low risk patient: Minimal or absent history of smoking and of other known risk factors. <= 4mm: No followup needed >4-6mm: Follow-up CT at 12 months, if unchanged - no further followup >6-8mm: Initial Follow-up CT at 6-12 months, then at 18-24 months if no change >8mm: Follow-up CT at 3, 9, and 24 months; FDG PET scan; and or biopsy High risk patient: History of smoking or of other known risk factors. <= 4mm: Follow-up CT at 12 months, if unchanged - no further followup >4-6mm: Initial Follow-up CT at 6-12 months, then at 18-24 months if no change >6-8mm: Initial Follow-up CT at 3-6 months, then at 9-12 and 24 months if no change >8mm: Follow-up CT at 3, 9, and 24 months; FDG PET scan; and or biopsy Note: Non-solid (ground-glass) or partly solid nodules may require longer follow-up to Electronically Signed: Carlos Ralph MD at 1:08 EST ,
[2022-03-24] MEDS: 0.9% Normal Saline 1,000 ML 999 ML IV (00:19)
[2022-03-24 01:10] LABS: Partial Thromboplast Time 26.7 Seconds (24.1-36.2); Prothrombin Time (Protime)PT. 13.1 SECONDS (11.7-14.9)
--- NOTE | 2022-03-30 14:32 | CASEMGMT ---
Addendum entered by Swetha Fang 03/31/22 11:45: 03/31/22 -1030:? TC to pt regarding incidental findings. Pt answered the call. Pt denied receiving a report in the mail regarding the findings. Pt denied having a PCP. Pt said she goes to a center sometimes and sees whatever dr available. Encouraged to make a PCP appt to review findings in further detail with a dr and follow dr recommendations. Pt stated she would do so. -1114:? TC. Pt had inquired about a Portal. [employer] Marketing provided information for the Patient Portal. Navigator provided the information on the [facility] website and encouraged pt to call the number listed if needed. Pt thanked Navigator and said she planned to get on the Portal.? Original Note: INCIDENTAL FINDING F/U -Per [facility]: CT/CTA Chest W/WO Contrast IMPRESSION: ?1.? No pulmonary embolism to the subsegmental level. 2.? Bilateral central groundglass opacities, suggestive of developing edema or infection. 3.? Left thyroid nodule measuring 14 mm. 4.? Right middle lobe 4 mm pulmonary nodule. -1431: TC to pt regarding the findings above. Per [facility], no PCP. Per Incidental Finding Report, Radiology will send reports to pt d/t no listed PCP. Call went straight to voicemail. Complex Manager Sales [employer] Marketing left name and phone contact.
== END 2022-03-24 01:34 | disposition home or self-care (01) ==
PROVIDERS: Emergency Provider Emergency Medicine; Visit Provider Emergency Medicine
DX: O26.893 Other specified pregnancy related conditions, third trimester (principal); R07.9 Chest pain, unspecified; R10.10 Upper abdominal pain, unspecified; R00.0 Tachycardia, unspecified; R06.82 Tachypnea, not elsewhere classified; Z87.891 Personal history of nicotine dependence; Z3A.36 36 weeks gestation of pregnancy
CPT/HCPCS: G0378 ×2; 59025; 59050; 71275; 80048; 83735; 84484; 85025; 85379; 85610; 85730; 93005; 96360; 99218; 99283; J7030; Q9967; A4216

== ENCOUNTER 2022-03-23 20:36 | Outpatient (CLI) | payer MEDICAID, SELFPAY ==
[2022-03-23 20:16] VITALS: PULSE 110; O2SAT 99
[2022-03-23 20:45] VITALS: BMI 25.1
[2022-03-23 20:48] VITALS: BP 126/82; PULSE 106
--- NOTE | 2022-03-25 18:01 | OB.TRI.NOTE ---
HPI - General General Date of Service: 03/15/22 HPI Narrative JESSICA LOPES, is a 32 F who presents with pelvic pain. Maternal Data Information Final ORTEGA: 03/22/22 Gestational age: 35&6 PFSH PFSH Medical History Former smoker Ovarian cyst Home Medications ferrous sulfate 325 mg (65 mg iron) tablet 325 mg PO DAILY SEE PROVIDER 03/23/22 [History Last Taken Unknown] Allergy/AdvReac Type Severity Reaction Status Date / Time Penicillins Allergy Rash Verified 03/23/22 22:26 Social History household members: children Smoking Status: Former smoker alcohol intake: never substance use type: does not use NST FHR Rate Baby A Baseline: 140 Variability:: Moderate Accelerations:: None and 15 x 15 Decelerations:: None NST Reactive:: Yes Uterine Activity:: Irregular Assessment & Plan (1) Threatened premature labor: COMMENT: 35&6 PLAN: Reactive NST
== END 2022-03-23 22:08 | disposition home or self-care (01) ==
LOC: WPOUT 20:38 → WP 20:38
PROVIDERS: Visit Provider Obstetrics & Gynecology
DX: O47.03 False labor before 37 completed weeks of gestation, third trimester (principal); Z3A.35 35 weeks gestation of pregnancy; Z87.891 Personal history of nicotine dependence; O26.893 Other specified pregnancy related conditions, third trimester; R07.9 Chest pain, unspecified; R10.10 Upper abdominal pain, unspecified; R00.0 Tachycardia, unspecified; R06.82 Tachypnea, not elsewhere classified
CPT/HCPCS: 59025; 59050 ×2; G0378 ×2; 99218